=== PATIENT | male | born 1950 | race Caucasian/White ===

== ENCOUNTER 2022-09-12 12:26 | Emergency (ER) | payer OTHER ==
[~2022-09-12] VITALS: Ht 165.1 cm; Wt 81.6 kg
--- NOTE | 2022-09-12 13:10 | NUR ---
MAIL SUPERINTENDENT AT BEDSIDE
[2022-09-12 13:19] LABS: BASOPHILS # (AUTO) 0.1 K/uL (0.0-0.2); BASOPHILS % (AUTO) 0.8 % (0.0-2.0); EOSINOPHILS % (AUTO) 5.3 % (0.0-6.0); HEMATOCRIT 34 % (39-51); HEMOGLOBIN 10.9 g/dL (13.5-17.5); LYMPHOCYTES # (AUTO) 1.1 K/uL (0.8-4.8); LYMPHOCYTES % (AUTO) 13.3 % (20.0-44.0); MEAN CORPUSCULAR HGB CONC 32 g/dl (31.0-36.0); MEAN CORPUSCULAR VOLUME 96 fL (80-96); MONOCYTES # (AUTO) 0.9 K/uL (0.1-1.30); MONOCYTES % (AUTO) 10.8 % (2.0-12.0); NEUTROPHILS # (AUTO) 5.5 K/uL (1.8-8.9); NEUTROPHILS % (AUTO) 69.8 % (43.0-81.0); PLATELET COUNT (AUTO) 104 K/uL (150-450); RED BLOOD CELL COUNT(AUTO) 3.48 MIL/uL (4.5-6.0); WHITE BLOOD COUNT (AUTO) 7.9 K/uL (4.3-11.0)
--- NOTE | 2022-09-12 13:20 | NUR ---
IV ESTABLISHED. 20 G L HAND
[2022-09-12] MEDS ORDERED: SENN-261 PO (13:23)
[2022-09-12] MEDS ORDERED: BISA10SU11 RC (13:23)
[2022-09-12] MEDS ORDERED: TAMS-12 PO (13:23)
[2022-09-12] MEDS ORDERED: BUME2TAB7 PO (13:23)
[2022-09-12] MEDS ORDERED: PSYL3.4P6 PO (13:23)
[2022-09-12] MEDS ORDERED: TRAZ-182 PO (13:23)
[2022-09-12] MEDS ORDERED: ACET-868 PO (13:23)
[2022-09-12] MEDS ORDERED: FINA5TAB11 PO (13:23)
[2022-09-12] MEDS ORDERED: ALBU2.5V38 NEB (13:23)
[2022-09-12] MEDS ORDERED: NA P133E RC (13:23)
[2022-09-12] MEDS ORDERED: ROSU20TA2 PO (13:23)
[2022-09-12] MEDS ORDERED: METO25TA20 PO (13:23)
[2022-09-12] MEDS ORDERED: MAGN400O6 PO (13:23)
[2022-09-12] MEDS ORDERED: MELA5TAB PO (13:23)
[2022-09-12] MEDS ORDERED: ASPI-1169 PO (13:23)
[2022-09-12 13:29] LABS: CALCIUM, SERUM 9.7 mg/dL (8.5-10.1); CARBON DIOXIDE 30 mmol/L (21-32); CHLORIDE 100 mmol/L (98-107); CREATININE 2.8 mg/dL (0.6-1.3); GLUCOSE 105 mg/dL (74-106); SODIUM SERUM 138 mmol/L (136-145); UREA NITROGEN, BLOOD 26 mg/dL (7-18)
[2022-09-12 13:35] LABS: ALANINE AMINOTRANSFERASE 16 U/L (12-78); ALBUMIN 3.1 g/dL (3.4-5.0); ALKALINE PHOSPHATASE 147 U/L (46-116); ASPARTATE AMINOTRANSFERASE 30 U/L (15-37); BILIRUBIN,DIRECT 0.3 mg/dL (0.0-0.2); BILIRUBIN,TOTAL 0.8 mg/dL (0.2-1.0); TOTAL PROTEIN, SERUM 6.5 g/dL (6.4-8.2)
--- NOTE | 2022-09-12 13:45 | NUR ---
URINE COLLECTED AND SENT TO LAB
[2022-09-12] MEDS ORDERED: CEFTRIAXONE 1GM BAG (ER ONLY) 1 GM/50 ML PIGGYBACK IV ONE (14:00)
[2022-09-12] MEDS ORDERED: CEFTRIAXONE 1GM BAG (ER ONLY) 50 ML IV ONE (14:19)
--- NOTE | 2022-09-12 14:25 | NUR ---
CLINICALS SENT TO ADMITTING FOR AUTH
[2022-09-12 14:51] LABS: BILIRUBIN,URINE NEGATIVE (NEGATIVE); COLOR,URINE YELLOW (YELLOW); LEUKOCYTE ESTERASE ,URINE NEGATIVE (NEGATIVE); NITRITE, URINE NEGATIVE (NEGATIVE); PROTEIN,URINE 1+ mg/dl (NEGATIVE); UGLUCOSE NEGATIVE (NEGATIVE); UROBILINOGEN,URINE 0.2 EU/dL (0.2)
[2022-09-12 16:34] LABS: BACTERIA,URINE None seen /HPF (None Seen); RBC,URINE 0-2 /HPF (0-2); SQUAMOUS EPITHELIAL CELL,UR 0-2 /HPF (None Seen); WBC,URINE 0-2 /HPF (0-3)
[2022-09-12 16:35] LABS: MUCUS,URINE Few /LPF (None Seen)
--- NOTE | 2022-09-12 18:18 | NUR ---
CALLED [facility] FOR HOSPITALIST ADMITTING ORDERS
--- NOTE | 2022-09-12 18:28 | NUR ---
[phone]
--- NOTE | 2022-09-12 18:42 | NUR ---
LEFT VOICEMAIL FOR DR LOMAX FOR ADMISSION
--- NOTE | 2022-09-12 18:51 | NUR ---
DR. PRINGLE AT BEDSIDE
--- NOTE | 2022-09-12 19:14 | NUR ---
[facility] ETA [phone]
[2022-09-12 19:16] VITALS: BP 112/73
--- NOTE | 2022-09-12 21:09 | NUR ---
[facility] ETA [id number]
--- NOTE | 2022-09-12 21:47 | NUR ---
ATTEMPTED MULTIPLE TIMES TO CALL [phone] AND [facility] REPORT TO THE FACILITY, LINE IS BUSY.
--- NOTE | 2022-09-12 21:48 | NUR ---
[facility] AT BED SIDE TO [employer] HATCHERY MAN THE PT
--- NOTE | 2022-09-12 22:04 | NUR ---
Patient discharged to [facility] in stable condition. Written and verbal after care instructions given. Patient verbalizes understanding of instruction.IV removed. Catheter intact and site benign. Pressure and 4x4 applied to site. No bleeding noted.
== END 2022-09-12 22:06 ==
LOC: ER 12:26
DX: T83.518A Infection and inflammatory reaction due to other urinary catheter, initial encounter (principal); F41.9 Anxiety disorder, unspecified; R51.9 Headache, unspecified; I11.0 Hypertensive heart disease with heart failure; I50.9 Heart failure, unspecified; K21.9 Gastro-esophageal reflux disease without esophagitis; F32.A Depression, unspecified; Z79.899 Other long term (current) drug therapy
CPT/HCPCS: 99285; 96365; 93005 ×2; 71045; 70450; 84145; 85025; 80048; 87040 ×2; 87086; 83605; 80076; 81001; 36415; 84484; 85730; 80320; 80307; J0696; G0480